=== PATIENT | female | born 1935 | race Caucasian/White ===

== ENCOUNTER 2020-10-09 11:35 | Emergency (ER) | payer SELFPAY ==
[~2020-10-09] VITALS: Ht 170.2 cm; Wt 81.3 kg
--- NOTE | 2020-10-09 11:53 | PHYS DOC ---
Past History Alcohol Use: None General Adult EDM: Chief Complaint: NEURO SYMPTOMS/DEFICITS HPI: HPI: Patient is a 84-year-old female brought in by EMS for an episode of unresponsiveness for about 3 to 5 minutes. Patient was sitting in denominational when she was noted to be drooling and unable to be aroused. Patient says she has a slight headache, denies any vision changes. Says otherwise she feels back to normal. Has a history of similar events, 1 approximately 3 months ago and another one 2 to 3 years ago. Patient is complaining of lightheadedness, denies any vertigo. States she had water and breakfast. Blood glucose per EMS 103. Has had both of her Moderna Covid vaccines. Review of Systems: Review of Systems: All other systems within normal limits except for as noted in the HPI Physical Exam: PE: Constitutional: Well developed, well nourished, no acute distress, non-toxic appearance. [] HENT: Normocephalic, atraumatic, bilateral external ears normal, nose normal. [] Eyes: PERRLA, conjunctiva normal, no discharge. [] Neck: No rigidity, supple, no stridor. [] Cardiovascular: Regular rate and rhythm, brisk cap refill [] Lungs & Thorax: Non labored symmetric respirations, no tachypnea or respiratory distress [] Abdomen: Soft, nondistended. Skin: Warm, dry, no erythema, no rash. [] Back: Unremarkable Extremities: No deformities, range of motion grossly intact, no lower extremity edema [] Neurologic: Alert and oriented X 3, no focal deficits noted. [] Psychologic: Affect normal, judgement normal, mood normal. [] EKG: EKG: Sinus rhythm, heart 64 bpm, no ST elevation or depression, no ectopy, normal axis. [] Radiology/Procedures: Radiology/Procedures: [address] [address] IMAGING REPORT Signed PATIENT: TORRES REN LACCOUNT: [id number] : 1935 LOCATION: ER AGE: 84 SEX: F EXAM STATUS: PRE ER ORD. PHYSICIAN: QUINTEN JAMISON MD REASON: Syncope, dizziness PROCEDURE: CHEST AP ONLY AP portable chest radiograph 10/09/2020 Clinical History: Syncope. Dizziness. Chest pain. Shortness of breath. An AP erect portable digital radiograph of the chest was obtained. No previous studies are available for comparison. The cardiac silhouette is mildly enlarged. The thoracic aorta is tortuous. A calcified granuloma seen involving the right lower lobe. Calcified right hilar lymph nodes are seen. Mild elevation right hemidiaphragm is seen. No acute pulmonary infiltrate is noted. There is diffuse osteopenia the visualized bony structures. Degenerative changes are seen involving the thoracic spine and both shoulders. IMPRESSION: No acute abnormality is seen. Electronically signed by: Amari Laguna MD (10/09/2020 12:18 PM) [id number] DICTATED AND SIGNED BY: AMARI LAGUNA MD DATE: 10/09/20 1217 CC: QUINTEN JAMISON MD ~MTH0 0 [][place] [address] IMAGING REPORT Signed PATIENT: TORRES REN LACCOUNT: [id number] : 1935 LOCATION: ER AGE: 84 SEX: F EXAM STATUS: PRE ER ORD. PHYSICIAN: QUINTEN JAMISON MD REASON: AMS, DIZZINESS PROCEDURE: CT HEAD WO CONTRAST CT HEAD/BRAIN WO History: Reason: AMS, DIZZINESS / Spl. Instructions: / History: Comparison: October 19, 2004 Technique: Noncontrast CT imaging was performed of the head. Exposure: One or more of the following individualized dose reduction techniques were utilized for this examination: 1. Automated exposure control 2. Adjustment of the mA and/or kV according to patient size 3. Use of iterative reconstruction technique. Findings: No intracranial hemorrhage. No mass effect. No hydrocephalus. Mild foci of decreased attenuation within the hemispheric white matter, most often due to chronic microvascular ischemia. Imaged orbits are unremarkable. Imaged paranasal sinuses and mastoid air cells are clear. No acute calvarial fracture. Impression: 1. No acute intracranial abnormality. Electronically signed by: Cash Guerra DO (10/09/2020 11:54 AM) [id number] DICTATED AND SIGNED BY: CASH GUERRA DO DATE: 10/09/20 1148 CC: QUINTEN JAMISON MD ~MTH0 0 Heart Score: C/O Chest Pain: No HEART Score for Chest Pain: HEART Score for Chest Pain Response (Comments) Value History Slighlty/Non-Suspicious 0 ECG Normal 0 Age > 65 2 Risk Factors >3 Risk Factors or Hx CAD 2 Troponin < Normal Limit 0 Total 4 Risk Factors: Risk Factors: DM, Current or recent (<one month) smoker, HTN, HLP, family history of CAD, obesity. Risk Scores: Score 0 - 3: 2.5% MACE over next 6 weeks - Discharge Home Score 4 - 6: 20.3% MACE over next 6 weeks - Admit for Clinical Observation Score 7 - 10: 72.7% MACE over next 6 weeks - Early Invasive Strategies Course & Med Decision Making: Course & Med Decision Making Pertinent Labs and Imaging studies reviewed. (See chart for details) Work-up unremarkable. Patient states that she has had extensive work-ups for similar episodes in the past. Daughter states she has had numerous episodes but mostly at home. Discussed admission for observation for possible cardiology and neurology consult, patient and daughter declined. They state they will follow up with her primary care provider in the morning. Discussed driving precautions and recommend against operating a vehicle until a cause of these unresponsive episodes is identified. [] Dragon Disclaimer: Dragon Disclaimer: This electronic medical record was generated, in whole or in part, using a voice recognition dictation system. Departure Departure: Impression: Primary Impression: Syncope Disposition: HOME / SELF CARE / HOMELESS Condition: STABLE Patient Instructions: Driving and Equipment Restrictions, [id number] QUINTEN JAMISON MD Oct 09, 2020 11:53
--- NOTE | 2020-10-09 11:57 | RAD ---
CT HEAD/BRAIN WO History: Reason: AMS, DIZZINESS / Spl. Instructions: / History: Comparison: October 19, 2004 Technique: Noncontrast CT imaging was performed of the head. Exposure: One or more of the following individualized dose reduction techniques were utilized for thi s examination: 1. Automated exposure control 2. Adjustment of the mA and/or kV according to patient size 3. Use of iterative reconstruction technique. Findings: No intracranial hemorrhage. No mass effect. No hydrocephalus. Mild foci of decreased attenuation within the hemispheric white matter, most often due to chronic anita rovascular ischemia. Imaged orbits are unremarkable. Imaged paranasal sinuses and mastoid air cells are clear. No acute ca lvarial fracture. Impression: 1. No acute intracranial abnormality. Electronically signed by: Cash Guerra DO (10/09/2020 11:54 AM) [id number]
--- NOTE | 2020-10-09 12:21 | RAD ---
AP portable chest radiograph 10/09/2020 Clinical History: Syncope. Dizziness. Chest pain. Shortness of breath. An AP erect portable digital radiograph of the chest was obtained. No previous studies are available for comparison. The cardiac silhouette is mildly enlarged. The thoracic aorta is tortuous. A calcified granuloma seen involving the right lower lobe. Calcified right hilar lymph nodes are seen. Mild elevation right hem idiaphragm is seen. No acute pulmonary infiltrate is noted. There is diffuse osteopenia the visualize d bony structures. Degenerative changes are seen involving the thoracic spine and both shoulders. IMPRESSION: No acute abnormality is seen. Electronically signed by: Amari Laguna MD (10/09/2020 12:18 PM) [id number]
[2020-10-09 13:01] LABS: BASO # 0.1 x10^3/uL (0.0-0.2); BASO % 1 % (0-3); EOS # 0.1 x10^3/uL (0.0-0.7); EOS % 1 % (0-3); HEMOGLOBIN 13.6 g/dL (12.0-15.5); LYMPH # 1.8 x10^3/uL (1.0-4.8); LYMPH % 23 % (24-48); MEAN CORPUSCULAR HEMOGLOBIN 30 pg (25-35); MEAN CORPUSCULAR HGB CONC 33 g/dL (31-37); MEAN CORPUSCULAR VOLUME 91 fL (79-100); MONO # 0.8 x10^3/uL (0.0-1.1); MONO % 11 % (0-9); NEUT # 4.9 x10^3uL (1.8-7.7); NEUT % 64 % (31-73); PLATELET COUNT 292 x10^3/uL (140-400); RED BLOOD COUNT 4.51 x10^6/uL (3.50-5.40); RED CELL DISTRIBUTION WIDTH 13.3 % (11.5-14.5); WHITE BLOOD COUNT 7.7 x10^3/uL (4.0-11.0)
[2020-10-09 13:08] LABS: CALCIUM 9.5 mg/dL (8.5-10.1); GFR 52.6; POTASSIUM 4.3 mmol/L (3.5-5.1)
[2020-10-09 13:20] LABS: ALBUMIN 3.9 g/dL (3.4-5.0); ALBUMIN/GLOBULIN RATIO 1.2 (1.0-1.7); MAGNESIUM 2.7 mg/dL (1.8-2.4); PHOSPHORUS 3.6 mg/dL (2.6-4.7); TOTAL BILIRUBIN 1.1 mg/dL (0.2-1.0); TOTAL PROTEIN 7.2 g/dL (6.4-8.2)
[2020-10-09] MEDS ORDERED: IV NORMAL SALINE 500ML 500 ML IV ONE (13:30)
[2020-10-09 13:50] LABS: BILIRUBIN,URINE NEG (NEG); CLARITY,URINE CLEAR; COLOR,URINE YELLOW; GLUCOSE,URINE NEG (NEG)
[2020-10-09 13:51] LABS: BACTERIA,URINE 0 /HPF (0-FEW); GRANULAR CASTS,URINE OCC /HPF; NITRITE,URINE NEG (NEG); SQUAMOUS EPITHELIAL CELL,UR MANY /LPF; UROBILINOGEN,URINE 0.2 mg/dL (0.2 mg/dL)
[2020-10-09 16:10] VITALS: BP 160/82
--- NOTE | 2020-10-10 11:51 | EKG ---
[address] [address] Test Date: 2020-10-09 Test Time: 12:02:20 Pat Name: TORRES REN Department: Room: Gender: F Customer Field Representative: ERICH : 1935 Requested By: QUINTEN JAMISON Order Number: [id number] Reading MD: Measurements Intervals [place] Rate: 64 P: 65 IN: 170 QRS: 28 QRSD: 84 T: 54 QT: 406 QTc: 423 Interpretive Statements SINUS RHYTHM NORMAL ECG RI6.02 No previous ECG available for comparison
== END 2020-10-09 16:16 | disposition home or self-care (01) ==
LOC: ER 11:35
DX: R55 Syncope and collapse (principal); R51.9 Headache, unspecified
CPT/HCPCS: 36415; 70450; 71045; 80053; 81001; 83735; 83880; 84100; 84484; 85025; 87086; 93005; 96360; 96361; 99285; J7040